=== PATIENT | male | born 1945 | race Caucasian/White ===

== ENCOUNTER → 2017-10-21 | Outpatient (CLI) | payer MEDICARE, OTHER ==
[~2017-10-21] MED LIST: ACET500T68 PO; ADALAT; AMLO-96 PO; ASC500 PO; ASCO-182 PO; ASP325 PO; ASPI-1471 PO; ATOR40TA24 PO; AZI250 PO; AZIT-17 PO; BENA20TA8 PO; CALC-18 PO; CALC1TAB32 PO; CALC600T72 PO; FLUO-202 PO; IBUP200C71 PO; METF-411 PO; MIRT-22 PO; MIRT-27 PO; MULT-1081 PO; MULT1CAP41 PO; NIFE30TA4 PO; NIFE60TA95 PO; NIFEDIAC CC; OMEP40CA45 PO; OMEP40CA48 PO; PROL120 PO; PROP120C31 PO; PROP60TA15 PO; PROP80TA25; SILD100T59 PO; SIMV-1 PO; TADA5TAB7; TEST200V IM; TRAM-420 PO; VALS-25 PO
[2017-10-21 09:18] LABS: PLATELET COUNT, AUTOMATED 224 K/uL (150-450)
[2017-10-21 10:28] LABS: LDL CHOLESTEROL 80 mg/dl
== END ==
LOC: LAB 08:24
PROVIDERS: ATTEND Internal Medicine
DX: Z12.5 Encounter for screening for malignant neoplasm of prostate (principal); I63.9 Cerebral infarction, unspecified; G25.0 Essential tremor; E78.5 Hyperlipidemia, unspecified; I10 Essential (primary) hypertension; R41.3 Other amnesia; R63.4 Abnormal weight loss
CPT/HCPCS: 36415; 81001; 82607; 82746; 83036; 84443; 85025; G0103; 82040; 82247; 82310; 82374; 82435; 82465; 82565; 82947; 83718; 84075; 84132; 84153; 84155; 84295; 84450; 84460; 84478; 84520

== ENCOUNTER → 2017-10-25 | Outpatient (CLI) | payer MEDICARE, OTHER ==
[~2017-10-25] MED LIST changes: +GADOBENATE 529MG/1ML 15ML VIAL IVP ONE
--- NOTE | 2017-10-25 12:14 | RADIOLOGY IMAGING REPORT ---
[place] [facility] [place] Bhavin [place] : 1945 MR: [id number] V: [id number] EXAM DATE: ORDERING PHYSICIAN: RUBI URBAN TECHNOLOGIST: [place] [facility] [place] Bhavin [place] : 1945 Visit/Account:[id number] Date of Sevice: 10/25/2017 EXAMINATION: MRI Brain without intravenous contrast MRI Brain with intravenous contrast HISTORY: Memory impairment. COMPARISON: None. TECHNIQUE: Multi-planar, multi-sequence brain MRI was performed before and after IV gadolinium. CONTRAST: 15 mL of IV MultiHance FINDINGS: Brain volume: Mild generalized volume loss. Sagittal midline structures: Negative. Ventricles: Negative. Acute ischemic changes: None. Hemorrhage: None. Masses / edema: None. Enhancement: Negative. Reeves-white: Negative. White matter: Mild chronic microvascular ischemic changes in the bilateral periventricular and deep white matter. Vessels: Negative. Extra-axial: Negative. Calvarium / scalp: Negative. Skull base: Negative. Visualized sinuses / orbits: 1.6 cm nasal septal perforation. Rightward nasal septal deviation. Mi ld mucosal thickening in the ethmoid air cells. Visualized upper neck: Negative. IMPRESSION: 1. No acute intracranial abnormality or mass. 2. Mild brain parenchymal volume loss and chronic microvascular ischemic changes in the periventricu lar and deep white matter. 3. 1.6 cm nasal septal perforation. Rightward nasal septal deviation. Mild mucosal thickening in t he ethmoid air cells. Report Dictated By: Kenny Ann MD at 10/25/2017 12:05 PM Report E-Signed By: Kenny Ann MD at 10/25/2017 12:10 PM WSN:[id number]
== END ==
LOC: MRI 01:07
PROVIDERS: ATTEND Internal Medicine
DX: J34.2 Deviated nasal septum (principal); J32.2 Chronic ethmoidal sinusitis; J34.89 Other specified disorders of nose and nasal sinuses
CPT/HCPCS: 70553; A9577

== ENCOUNTER → 2018-02-16 | Outpatient (CLI) | payer MEDICARE, OTHER ==
[~2018-02-16] MED LIST changes: +BENA20TA64 PO; -BENA20TA8 PO; +BENA40TA53 PO; -GADOBENATE 529MG/1ML 15ML VIAL IVP ONE; +IBUP-136 PO; -IBUP200C71 PO; +OMEP-137 PO
[2018-02-16 08:19] LABS: PLATELET COUNT, AUTOMATED 190 K/uL (150-450)
[2018-02-16 09:01] LABS: LDL CHOLESTEROL 79 mg/dl
== END ==
LOC: LAB 08:01
PROVIDERS: ATTEND Internal Medicine
DX: I10 Essential (primary) hypertension (principal); E78.5 Hyperlipidemia, unspecified; I63.9 Cerebral infarction, unspecified; R73.09 Other abnormal glucose
CPT/HCPCS: 36415; 81001; 82040; 82247; 82310; 82374; 82435; 82465; 82565; 82947; 83036; 83718; 84075; 84132; 84155; 84295; 84443; 84450; 84460; 84478; 84520; 85025

== ENCOUNTER 2018-02-25 12:28 | Emergency (ER) | payer MEDICARE, OTHER ==
[~2018-02-25 12:28] MED LIST changes: +AMLO-111 PO; -AMLO-96 PO; -METF-411 PO; +METF-450 PO
--- NOTE | 2018-02-25 12:32 | ER Report ---
History and Physical Time Seen By : 12:31 HPI/ROS CHIEF COMPLAINT: Finger issue HISTORY OF PRESENT ILLNESS: He states that he was washing his car today, and after approximately 15 minutes noticed that he was unable to fully extend his index finger of his right hand at the distal phalangeal joint. Does not Allergies: Coded Allergies: Penicillins (Verified Allergy, Unknown, CHILDHOOD ALLERGY, 04/26/17) Home Meds Active Scripts Fluoxetine Hcl (PROZAC) 20 Mg Capsule, 20 MG PO QDAY for 90 Days, #90 CAPSULE 3 Refills Prov:RUBI URBAN MD 02/06/18 Mirtazapine (MIRTAZAPINE) 15 Mg Tablet, 0.5-1 TAB PO QHS PRN for diff sleeping, #90 TAB 1 Refill Prov:RUBI URBAN MD 01/11/18 Benazepril Hcl (BENAZEPRIL HCL) 40 Mg Tablet, 40 MG PO QDAY, #90 TAB 3 Refills Prov:RUBI URBAN MD 12/07/17 Acetaminophen (TYLENOL EXTRA STRENGTH) 500 Mg Tablet, 500 MG PO TID PRN for PAIN, #30 TAB Prov:RBUI URBAN MD 04/26/17 Propranolol Hcl (PROPRANOLOL HCL) 60 Mg Tablet, 60 MG PO BID, #180 TAB 3 Refills Prov:RUBI URBAN MD 04/26/17 Atorvastatin Calcium (LIPITOR) 40 Mg Tablet, 1 TAB PO QDAY, #90 TAB 3 Refills Prov:JOSE BAEZ APRN ICE GRINDER-C 04/08/17 Reported Medications Omeprazole (OMEPRAZOLE) 20 Mg Capsule.dr, 1 CAP PO BID, CAP 02/25/18 Calcium Carb & Cit/Vitamin D3 (CALCIUM + D3 ER TABLET) 1 Each Tablet.er, 600 MG PO QDAY 04/26/17 Aspirin (ASPIR 81) 81 Mg Tablet.dr, 81 MG PO QDAY, TAB 02/08/17 Ascorbic Acid (VITAMIN C) Unknown Strength Tablet, 500 PO QDAY, TAB 01/20/17 Multivitamin (MULTI-DAY VITAMINS) 1 Each Tablet, 1 EACH PO 04/01/14 Discontinued Scripts Omeprazole (OMEPRAZOLE) 20 Mg Tablet., 20 MG PO QDAY, #90 TAB 3 Refills Prov:RUBI URBAN MD 10/27/17 Past Medical/Surgical History Noncontributory towards his chief complaint Hx Smoking: No Smoking Status: Never Smoker Hx Substance Use Disorder: No Hx Alcohol Use: Yes (OCC) Constitutional Vital Sign - Last 24 Hours 02/25/18 02/25/18 02/25/18 02/25/18 12:33 12:33 12:45 13:00 Temp 97.4 Pulse 63 56 57 Resp 18 B/P (MAP) 178/80 178/80 (112) Pulse Ox 96 96 95 O2 Delivery Room Air 02/25/18 02/25/18 13:15 13:36 Pulse 59 B/P (MAP) 151/80 (103) Pulse Ox 95 Physical Exam Examination of the Right hand reveals a shunt with flexion at the distal interphalangeal joint of the right index finger. Patient is able to flex the index finger but not fully extend at the DIP joint. The patient is able to give a thumbs up sign, is able to make an okay sign, and is able to AB duct the fingers. Sensation is intact over the dorsal 1st web space, the volar aspect of the 2nd finger, and the volar aspect of the 5th finger. Capillary refill is brisk. Medical Decision Making EKG/Imaging Imaging FACILITY: [facility] [place] PATIENT NAME: Bhavin Dawson : 1945 MR: [id number] V: [id number] EXAM DATE: ORDERING PHYSICIAN: ОЛЬГА NULL TECHNOLOGIST: Location: [facility] [place] Patient: Bhavin Dawson : 1945 Visit/Account:[id number] Date of Sevice: 02/25/2018 Exam type: 3 views of the right 2nd digit History: mallet finger deformity Comparison: None. Findings: There is a flexion deformity of the DIP joint of the right 2nd finger. Some soft tissue swelling around the PIP joint is noted. Lateral view demonstrates a bony fragment near the base of the middle phalanx of the right 2nd finger possibly an avulsion fracture of uncertain chronicity. IMPRESSION: 1. Avulsion fracture of the base of the middle phalanx of the right 2nd finger of uncertain chronicity. 2. Flexion deformity of the DIP joint of the right 2nd finger. Report Dictated By: Todd Wilkes MD at 02/25/2018 12:59 PM Report E-Signed By: Todd Wilkes MD at 02/25/2018 1:03 PM WSN:[id number] ED Course/Re-evaluation ED Course X-ray revealed a small tuft fracture to the distal aspect of the distal phalanx. Patient with mallet finger injury Decision to Disposition Date: Feb 25, 2018 Decision to Disposition Time: 13:15 Depart Departure Latest Vital Signs Vital Signs Date Time Temp Pulse Resp B/P (MAP) Pulse Ox O2 Delivery O2 Flow Rate FiO2 02/25/18 13:36 151/80 (103) 02/25/18 13:15 59 95 02/25/18 12:33 97.4 18 Room Air Impression: Primary Impression: Mallet deformity of index finger Condition: Improved Disposition: HOME OR SELF-CARE Referrals: RUBI URBAN MD (PCP) TODD ESPINOZA MD Patient Instructions: Finger Fracture (ED) Additional Instructions: Call Tuesday to schedule a follow-up appointment with Dr Espinoza, for evaluation and treatment of your index finger ОЛЬГА NULL MD Feb 25, 2018 12:32
[2018-02-25] MEDS ORDERED: OMEP-125 PO (12:39)
--- NOTE | 2018-02-25 13:07 | RADIOLOGY IMAGING REPORT ---
[place] [facility] [place]: Bhavin [place] : 1945 MR: [id number] V: [id number] EXAM DATE: ORDERING PHYSICIAN: ОЛЬГА NULL TECHNOLOGIST: [place] [facility] [place] Bhavin [place] : 1945 Visit/Account:[id number] Date of Sevice: 02/25/2018 Exam type: 3 views of the right 2nd digit History: mallet finger deformity Comparison: None. Findings: There is a flexion deformity of the DIP joint of the right 2nd finger. Some soft tissue swelling arou nd the PIP joint is noted. Lateral view demonstrates a bony fragment near the base of the middle phal anx of the right 2nd finger possibly an avulsion fracture of uncertain chronicity. IMPRESSION: 1. Avulsion fracture of the base of the middle phalanx of the right 2nd finger of uncertain chronicit y. 2. Flexion deformity of the DIP joint of the right 2nd finger. Report Dictated By: Todd Wilkes MD at 02/25/2018 12:59 PM Report E-Signed By: Todd Wilkes MD at 02/25/2018 1:03 PM WSN:[id number]
[2018-02-25 13:36] VITALS: BP 151/80
== END 2018-02-25 13:40 | disposition home or self-care (01) ==
LOC: ER 12:42
DX: M20.011 Mallet finger of right finger(s) (principal)
CPT/HCPCS: 99283

== ENCOUNTER → 2018-03-23 | Outpatient (CLI) | payer MEDICARE, OTHER ==
[~2018-03-23] MED LIST changes: +AMLO2.5T76 PO; +MELA5TAB20 PO; +OMEP-125 PO
== END ==
LOC: RESP 06:42
PROVIDERS: ATTEND Internal Medicine
DX: G47.33 Obstructive sleep apnea (adult) (pediatric) (principal)

== ENCOUNTER → 2018-04-07 | Outpatient (CLI) | payer MEDICARE, OTHER | LOC: US 06:47 | PROVIDERS: ATTEND Internal Medicine | DX: I35.1 Nonrheumatic aortic (valve) insufficiency (principal); R01.1 Cardiac murmur, unspecified; I51.7 Cardiomegaly | CPT/HCPCS: 93306 ==

== ENCOUNTER → 2018-05-12 | Outpatient (CLI) | payer MEDICARE, OTHER ==
[~2018-05-12] MED LIST changes: +CIPR-214 PO; +NIFE60TA PO
[2018-05-12 10:43] LABS: PLATELET COUNT, AUTOMATED 170 K/uL (150-450)
== END ==
LOC: LAB 10:25
PROVIDERS: ATTEND Nurse Practitioner Primary Care
DX: R19.7 Diarrhea, unspecified (principal)
CPT/HCPCS: 36415; 82040; 82247; 82274; 82310; 82374; 82435; 82565; 82947; 83630; 84075; 84132; 84155; 84295; 84450; 84460; 84520; 85025; 87045; 87493

== ENCOUNTER → 2018-05-26 | Outpatient (CLI) | payer MEDICARE, OTHER | LOC: RESP 19:48 | PROVIDERS: ATTEND Internal Medicine | DX: G47.33 Obstructive sleep apnea (adult) (pediatric) (principal); G47.36 Sleep related hypoventilation in conditions classified elsewhere; G47.61 Periodic limb movement disorder ==

== ENCOUNTER → 2018-09-05 | Outpatient (CLI) | payer MEDICARE, OTHER ==
[~2018-09-05] MED LIST changes: -AMLO-111 PO; +AMLO-125 PO; -AMLO2.5T76 PO; +AMLO2.5T78 PO; +BENA10TA55 PO; +C PAP; -MIRT-27 PO; +MIRT15TA11 PO
[2018-09-05 08:44] LABS: PLATELET COUNT, AUTOMATED 176 K/uL (150-450)
[2018-09-05 09:38] LABS: LDL CHOLESTEROL 61 mg/dl
== END ==
LOC: LAB 08:12
PROVIDERS: ATTEND Internal Medicine
DX: Z12.5 Encounter for screening for malignant neoplasm of prostate (principal); I10 Essential (primary) hypertension; E78.5 Hyperlipidemia, unspecified; G47.33 Obstructive sleep apnea (adult) (pediatric)
CPT/HCPCS: 36415; 81001; 83036; 84443; 85025; G0103; 82040; 82247; 82310; 82374; 82435; 82465; 82565; 82947; 83718; 84075; 84132; 84153; 84155; 84295; 84450; 84460; 84478; 84520

== ENCOUNTER → 2019-01-29 | Outpatient (CLI) | payer MEDICARE, OTHER ==
[~2019-01-29] MED LIST changes: +ALPH300C2 PO; +LMFO1TAB PO; -OMEP-125 PO; +OMEP-126 PO
[2019-01-29 07:43] LABS: PLATELET COUNT, AUTOMATED 184 K/uL (150-450)
[2019-01-29 07:48] LABS: LDL CHOLESTEROL 68 mg/dl
== END ==
LOC: LAB 07:06
PROVIDERS: ATTEND Internal Medicine
DX: G62.9 Polyneuropathy, unspecified (principal); I10 Essential (primary) hypertension; E78.5 Hyperlipidemia, unspecified; G25.0 Essential tremor; R73.9 Hyperglycemia, unspecified
CPT/HCPCS: 36415; 81001; 82040; 82247; 82310; 82374; 82435; 82465; 82565; 82947; 83036; 83718; 84075; 84132; 84155; 84295; 84443; 84450; 84460; 84478; 84520; 85025